=== PATIENT | female | born 1985 | race Caucasian/White ===

== ENCOUNTER 2018-11-08 05:52 | Emergency (ER) | payer MEDICAID ==
[2018-11-08] MEDS ORDERED: Ketorolac 60 MG/2 ML SDV IM ONE (06:17)
[2018-11-08] MEDS ORDERED: Prochlorperazine 10 MG/2 ML SDV IM ONE (06:17)
[2018-11-08] MEDS ORDERED: diphenhydrAMINE 50 MG/ML SDV IM ONE (06:17)
--- NOTE | 2018-11-08 06:21 | EDM.PDOC ---
ED HPI GENERAL MEDICAL PROBLEM - General Chief Complaint: Headache Stated Complaint: HEADACHE Time Seen by Provider: 11/08/18 06:14 Source of Information: Reports: Patient, Family, RN Notes Reviewed History Limitations: Reports: No Limitations - History of Present Illness INITIAL COMMENTS - FREE TEXT/NARRATIVE: 33-year-old female presents emergency department today complaint migraine type headache, she states this is typical for her she has used her Maxalt at home without any relief she complaints of nausea and photophobia no fevers Treatments APPLICATION SUPPORT ADMINISTRATOR: Reports: Other (see below) Other Treatments APPLICATION SUPPORT ADMINISTRATOR: unknown migraine headache Pain Score (Numeric/FACES): 8 - Related Data Allergies Allergy/AdvReac Type Severity Reaction Status Date / Time No Known Allergies Allergy Verified 11/08/18 06:05 Home Meds: Home Meds Naproxen Sodium [Aleve] 440 mg PO ASDIRECTED PRN 09/23/18 [History] Ondansetron [Zofran Odt] 8 mg PO Q6H PRN #10 tab.rapdis 09/23/18 [Rx] Rizatriptan [Maxalt MENTAL HEALTH ASSISTANT] 10 mg PO ASDIRECTED PRN 09/23/18 [History] Past Medical History Cardiovascular History: Reports: Other (See Below) Other Cardiovascular History: Varicose veins. 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: Neurological History: Reports: Headaches, Chronic, Migraines Other Neuro History: Migrains for the last 21 years - Past Surgical History Female Surgical History: Reports: Tubal Ligation Social & Family History - Family History Family Medical History: Noncontributory - Tobacco Use Smoking Status *Q: Current Every Day Smoker Years of Tobacco use: 16 Packs/Tins Daily: 0.1 - Caffeine Use Caffeine Use: Reports: Soda - Recreational Drug Use Recreational Drug Use: No ED ROS GENERAL - Review of Systems Review Of Systems: See Below Constitutional: Denies: Fever HEENT: Reports: Eye Pain Respiratory: Reports: No Symptoms Cardiovascular: Reports: No Symptoms GI/Abdominal: Reports: Nausea - Physical Exam Exam: See Below Exam Limited By: No Limitations General Appearance: Alert, WD/WN, No Apparent Distress Eye Exam: Bilateral Eye: EOMI, Normal Fundi, Normal Inspection Respiratory/Chest: No Respiratory Distress Course - Orders/Labs/Meds Meds: Medications Discontinued Medications Generic Name Dose Route Start Last Admin Trade Name Freq PRN Reason Stop Dose Admin Diphenhydramine HCl 25 mg 11/08/18 06:17 11/08/18 06:35 Benadryl IM 11/08/18 06:18 25 mg ONETIME ONE Administration Ketorolac Tromethamine 60 mg 11/08/18 06:17 11/08/18 06:38 Toradol IM 11/08/18 06:18 60 mg ONETIME ONE Administration Prochlorperazine Edisylate 5 mg 11/08/18 06:17 11/08/18 06:33 Compazine IM 11/08/18 06:18 5 mg ONETIME ONE Administration Departure - Departure Time of Disposition: 06:47 Disposition: Home, Self-Care 01 Condition: Fair Clinical Impression: Migraine Qualifiers: Migraine type: without aura Status migrainosus presence: without status migrainosus Intractability: not intractable Qualified Code(s): G43.009 - Migraine without aura, not intractable, without status migrainosus - Discharge Information Instructions: Migraine Headache, [id number] Referrals: PCP,None [Primary Care Provider] - Forms: ED Department Discharge, ED Return to Work/School Form - Assessment/Plan Plan: Assessment Acuity = acute Site and laterality = migraine type headache Etiology = unknown etiology Manifestations = nausea, photophobia Location of injury = Home Lab values = none Plan Good relief combination Toradol, Compazine, Benadryl follow-up primary care 3-5 days if no improvement This note was dictated using [employer] voice recognition software please call with any questions on syntax or grammar.
[2018-11-08 07:04] VITALS: BP 141/103
== END 2018-11-08 07:01 | disposition home or self-care (01) ==
LOC: JP.ED 05:52
DX: G43.009 Migraine without aura, not intractable, without status migrainosus (principal); F17.200 Nicotine dependence, unspecified, uncomplicated; Z79.899 Other long term (current) drug therapy
CPT/HCPCS: 96372; 99283; J0780; J1200; J1885